=== PATIENT | male | born 1980 | race Caucasian/White ===

== ENCOUNTER 2020-03-21 11:29 | Day surgery (SDC) | payer BC, SELFPAY ==
[2020-03-21 11:49] VITALS: BP 136/94; PULSE 109; RESP 16; TEMP 36.5; O2SAT 99; BMI 30.7
[2020-03-21 11:53] LABS: Hematocrit 44.6 % (40-54); Hemoglobin 15.9 g/dL (13.0-16.5); Mean Corp Hgb Conc 35.7 g/dL (32-36); Mean Corpuscular Hgb 31.6 pg (27.0-32.0); Mean Corpuscular Volume 88.7 fL (80-94); Mean Platelet Vol. 10.1 fl (6.2-12.0); Platelet Count 202 K/mm3 (150-450); RBC Distribution Width CV 12.7 % (11.6-14.6); RBC Distribution Width SD 41.1 fl (35.1-43.9); Red Blood Count 5.03 M/mm3 (4.6-6.2); White Blood Count 5.9 K/mm3 (4.4-11.0)
[2020-03-21] MEDS: Lactated Ringers 1,000 ML 100 ML IV (12:12)
--- NOTE | 2020-03-21 13:00 | CYST_PTH ---
PATIENT: ARMANDO NIETO LOC: [facility] [place] U#:[id number] AGE/SX: 39/M ROOM: RE03/21/[address]: Dr. Сергей Mejia DDS : 1980 BED: DIS: 03/21/2020 SPEC #: [id number] RECD: 03/21/20 14:56 STATUS: JEREMY EMMIE #: [id number] LINDA: 03/21/20 13:[address]: Сергей Mejia DEPT: SURGICAL PATHOLOGY RECD BY: Deangelo Drake ENTERED: 03/22/20 08:24 SP TYPE: Cyst OTHR DR: No Primary Care Phys Tissues: Mouth, NOS Procedures: Decalcification bone/plaque Surgery Specimen Level IV HEADER OPERATION: Excision benign tumor upper right PRE-OP DIAGNOSIS: Maxillary tumors TISSUE SUBMITTED: Right mouth cyst lining MICROSCOPIC DIAGNOSIS Right mouth cyst lining, excision: Calcifying odontogenic cyst. See comment. ARIANA:[email or web address] 04/09/20 COMMENT The specimen is sent to [facility] for expert opinion, reviewed by Dr. Wu and consultation with Dr. Guzman and the above diagnosis is rendered. The complete report is viewable in the patient's EMR. 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 Periodic clinical and radiographic follow-up may be warranted. Discussed with Dr. Mejia on 03/27/20. Case has been reviewed in consultation with Dr. Shah who concurs with the above diagnosis. IDC:AM MICROSCOPIC DESCRIPTION Slides are reviewed. Sections show a cyst lined by nonkeratinized stratified squamous epithelium focally exhibiting palisading of basal cell nuclei with reverse polarity. Overlying loosely arranged epithelium resembling stellate reticulum is observed in association with prominent collections of eosinophilic cells lacking nuclei consistent with ghost cells. The cyst wall consists of dense fibrous connective tissue and hemorrhagic chronically inflamed granulation tissue supporting numerous aggregates of ghost cells in association with foreign body giant cells. Scattered benign rests of odontogenic epithelium and calcific material consistent with dentinoid are noted. Trabeculae of reactive woven bone and segments of respiratory-type epithelium consistent with antral mucosa are also observed. GROSS DESCRIPTION Received in fixative is one container labeled with the patient's name and designated right mouth cyst lining. The specimen consists of a hemorrhagic piece of wilson soft tissue measuring 5.5 x 1.5 x 0.2 cm. A?focal area shows bony tissue. The entire specimen is submitted in three cassettes as follows: 1 - soft tissue, 2 & 3 - tissue with bone formation after decalcification. / SJ:farooq 03/22/20 TC:5 CPT: 54921, 18745
[2020-03-21 14:17] VITALS: BP 135/100; BP 136/94; PULSE 100; RESP 16; TEMP 36.5; O2SAT 100
--- NOTE | 2020-03-21 14:26 | PCM.OPRPT ---
Report of Operation Date of Procedure: 03/21/20 Pre-Operative Diagnosis: Maxillary lesion Probable cyst Post-Operative Diagnosis: Maxillary Cyst Surgery/Procedure Performed:: Total Excision Right Maxillary cyst Description of Surgical Findings:: Large Maxillary Cyst 10 cm 10 cm Type of Anesthesia:: General Specimen's removed: Cystic Tissue Drains: none Estimated Blood Loss (mL): 20 cc Description of Procedure: Patient Identified in Pre-op hold where the patient and his mother were present. Description of the procedure was give and ample opportunity to ask questions was also given. He was taken to the OR placed on OR table in supine position. IV anesthesia was given and the patient intubated without consequences orally. The patient was prepped and draped in sterile fashion. Lidocaine 2% with epinephrine 6 cc locally injected into the right maxillary vestibule above the very large buccal expansion. Prior to incision 40 cc of purulent exudate and cystic fluid was aspirated. An mucosal incision was made from posterior to just under the nasal base anteriorly. Dissection continued down to the bone and a full flap was elevated. The cystic lining was removed in multiple segments due to the lesion being very large and invading the nasal fossa. Once I was comfortable with the cystic tissue being removed as I best could the site was irrigated and suctioned free of all debri. The incision was closed with 3-0 chromic in a continuous interlocking fashion. The throat was suctioned free of fluids and the patient awakened and extubated and brought to recovery room in stable condition. All sponge and needle counts correct. - Admit VTE Documentation VTE Present on Admission: No VTE Mechan Device Prophylaxis: None VTE Pharm Prophylaxis ordered?: No Reason prophylaxis not ordered:: Treatment Not Indicated
[2020-03-21 14:30] VITALS: BP 136/94; BP 137/98; PULSE 82; RESP 16; O2SAT 100
[2020-03-21 14:35] VITALS: BP 136/94; BP 137/98; PULSE 87; RESP 16; O2SAT 100
[2020-03-21 14:38] VITALS: BP 129/84; BP 136/94; PULSE 82; RESP 16; TEMP 36.3; O2SAT 100
[2020-03-21] MEDS: Ketorolac 30 MG/ML Syringe IV (15:16)
[2020-03-21 15:32] VITALS: BP 134/91; BP 136/94; PULSE 78; RESP 16; TEMP 36.5; O2SAT 98
== END 2020-03-21 15:45 | disposition home or self-care (01) ==
LOC: SDC 11:33 → AC 11:33
PROVIDERS: Anesthesiology; Referring Provider Dentist Oral and Maxillofacial Surgery; Visit Provider Dentist Oral and Maxillofacial Surgery
PROC: (CPT 31030; principal; 2020-03-21 12:45)
DX: K09.0 Developmental odontogenic cysts (principal); Z11.59 Encounter for screening for other viral diseases
CPT/HCPCS: 00160; 31030; 85027; 87635; 88305; 88311; 94799; J7120; J2405; U0003